=== PATIENT | female | born 1995 | race Caucasian/White ===

== ENCOUNTER 2024-10-29 08:46 | Emergency (ER) | payer OTHER ==
[~2024-10-29] VITALS: Ht 172.7 cm; Wt 125.0 kg
[2024-10-29 08:53] VITALS: TEMP 97.6
--- NOTE | 2024-10-29 08:57 | Physician Documentation ---
History of Present Illness ~ Chief Complaint: Hypertension Stated Complaint: HIGH BLOOD PRESSURE Time Seen by MD: 09:56 HPI THIS 29-YEAR-OLD FEMALE WITH A HISTORY OF ANXIETY AND DEPRESSION PRESENTS WITH A COMPLAINT OF NAUSEA AND VOMITING AND DRY HEAVING OVER THE LAST 2-3 DAYS. SHE ALSO REPORTS HAVING ELEVATED BLOOD PRESSURE. REPORTS INCREASED STRESS LEVELS AT HER NEW JOB. ALSO REPORTS OF MIDSTERNAL CHEST PAIN. REPORTS FEELING WOOZY" The patient tells me that she recently started multiple new medications including an antidepressant and propranolol for high blood pressure. She states that she has been under lot of stress recently. She reports that she has been having multiple symptoms including fatigue, chest tightness when she takes a deep breath, nausea, and general malaise. She had been checking her blood pressure multiple times today and noticed that it was very high, with systolics up to 110. She thought that was bad so she came to the ER. No fevers, chills or other infectious type symptoms. Day of Onset: Oct 29, 2024 Medication Reconciliation Allergies: Coded Allergies: No Known Allergies (Unverified , 10/29/24) Review of Systems Constitutional: Denies: fever Cardiovascular: Reports: chest pain Gastrointestinal: Reports: nausea Physical Exam Vital Signs: Temperature: 97.6, Source: Temporal, Heart Rate: 61, Respiratory Rate: 18, BP: 171/120, Pulse Oximetry: 99, Weight: 124.950 Oxygen Flow Rate: 0 Physical Exam General: This is a tired and mildly anxious appearing young woman, partner at bedside HEENT: Atraumatic, oropharynx appears dry with cracked lips Heart: Regular rate and rhythm, normal-appearing peripheral perfusion Chest: No reproducible tenderness on palpation of the anterior chest wall Lungs: Clear breath sounds bilateral, normal work of breathing, normal oxygen saturation on room air Abdomen: Soft, nondistended, nontender all quadrants Extremities: Warm and well-perfused Neuro: Alert and oriented, no focal deficits Psychiatric: Flattened affect, appears tired, lying with their eyes closed, appears mildly anxious Progress Results/Orders Results/Orders Vital Signs 10/29/24 10/29/24 10/29/24 10/29/24 08:53 10:17 12:40 13:04 Temp 97.6 Pulse 61 51 51 Resp 18 15 14 15 B/P (MAP) 171/120 163/103 (123) 163/103 Pulse Ox 99 100 100 O2 Flow Rate 0 Laboratory Tests Test 10/29/24 09:05 10/29/24 09:55 10/29/24 11:16 CBC Comment Chemistry Comments White Blood Count 8.1 Red Blood Count 5.15 Hemoglobin 15.1 Hematocrit 44.7 Mean Corpuscular Volume 86.7 Mean Corpuscular Hemoglobin 29.4 Mean Corpuscular Hemoglobin Concent 33.9 Red Cell Distribution Width 13.6 Platelet Count 261 Mean Platelet Volume 8.5 Neutrophils (%) (Auto) 61.7 Lymphocytes (%) (Auto) 27.3 Monocytes (%) (Auto) 7.7 Eosinophils (%) (Auto) 2.8 Basophils (%) (Auto) 0.5 Neutrophils # (Auto) 5.0 Lymphocytes # (Auto) 2.2 Monocytes # (Auto) 0.6 Eosinophils # (Auto) 0.2 Basophils # (Auto) 0.0 Sodium Level 142 Potassium Level 3.8 Chloride Level 106 Carbon Dioxide Level 27.4 Anion Gap 9 Blood Urea Nitrogen 6 L Creatinine 0.90 Estimated GFR/1.73 m2 75 BUN/Creatinine Ratio 6.7 L Glucose Level 131 H Calcium Level 8.9 Total Bilirubin 0.6 Aspartate Amino Transf (AST/SGOT) 40 H Alanine Aminotransferase (ALT/SGPT) 72 Alkaline Phosphatase 82 Troponin I High Sensitivity 4 5 Pro-B-Type Natriuretic Peptide 105 Total Protein 7.6 Albumin 3.8 Globulin 3.8 Albumin/Globulin Ratio 1.0 L Troponin I High Sens Percent Delta 25 Troponin I Hi Sens Absolute Change 1 Medical Decision Making Differential Dx:Considerations: Include HTN, essential, Include HTN, accelerated, Include HTN, malignant Additional Information Anxiety, medication reaction, dehydration, viral syndrome Departure Time of Disposition: 12:32 Disposition: 01 HOME / SELF CARE / HOMELESS Impression: Primary Impression: Hypertension Additional Impression: Stress Condition: Stable Discharge Instructions: Hypertension, Adult Referrals: NO PRIMARY CARE PROVIDER (PCP) Education Educated: Patient Educated regarding: diagnosis Signature Scribe Signature: f Attestation: Scribed for Tobias Dumont MD by Johnathan Pierce NP . 10/29/24 18:21 JOHNATHAN ADAME NP Oct 29, 2024 08:57 TOBIAS DUMONT MD Oct 29, 2024 10:22
--- NOTE | 2024-10-29 09:03 | ELECTROCARDIOGRAPH REPORT ---
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
--- NOTE | 2024-10-29 09:40 | RADIOLOGY REPORT ---
CHEST RADIOGRAPH Indication: CP Technique: Single frontal view of the chest was obtained Comparison: None FINDINGS: Lines and Tubes: None Lungs: No focal consolidation. Pleura: No effusion. No pneumothorax. Cardiomediastinal contours: Unremarkable Bones: No acute osseous abnormality. IMPRESSION: 1. No acute cardiopulmonary disease.
[2024-10-29 10:02] LABS: BASOPHILS % (AUTO) 0.5 % (0-1); EOSINOPHILS # (AUTO) 0.2 X10'3 (0-0.9); EOSINOPHILS % (AUTO) 2.8 % (0-6); HEMATOCRIT 44.7 % (35.0-45.0); HEMOGLOBIN 15.1 g/dl (12.0-16.0); LYMPHOCYTES # (AUTO) 2.2 X10'3 (1.1-4.8); LYMPHOCYTES % (AUTO) 27.3 % (21-51); MEAN CORPUSCULAR HEMOGLOBIN 29.4 PG (27.0-31.0); MEAN CORPUSCULAR HGB CONC 33.9 g/dL (33.0-36.5); MEAN CORPUSCULAR VOLUME 86.7 FL (78-98); MEAN PLATELET VOLUME 8.5 FL (7.4-10.4); MONOCYTES # (AUTO) 0.6 X10'3 (0-0.9); MONOCYTES % (AUTO) 7.7 % (2-12); NEUTROPHILS % (AUTO) 61.7 % (42-75); PLATELET COUNT 261 X10'3 (140-440); RED BLOOD COUNT 5.15 X10'6 (4.20-5.60); RED CELL DISTRIBUTION WIDTH 13.6 % (11.5-14.5); WHITE BLOOD COUNT 8.1 X10'3 (4.5-11.0)
[2024-10-29 10:25] LABS: ALANINE AMINOTRANSFERASE 72 U/L (12-78); ALBUMIN 3.8 G/DL (3.4-5.0); ALKALINE PHOSPHATASE 82 IU/L (46-116); ANION GAP 9 (8-16); ASPARTATE AMINO TRANSFERASE 40 U/L (10-37); BILIRUBIN,TOTAL 0.6 MG/DL (0.1-1.0); BLOOD UREA NITROGEN 6 MG/DL (7-18); BUN/CREATININE RATIO 6.7 (10.0-20.0); CALCIUM 8.9 MG/DL (8.5-10.1); CHLORIDE 106 MMOL/L (99-107); GLUCOSE 131 MG/DL (70-104); POTASSIUM 3.8 MMOL/L (3.5-5.1); SODIUM 142 MMOL/L (135-145); TOTAL CARBON DIOXIDE 27.4 MMOL/L (24-32); TOTAL PROTEIN 7.6 G/DL (6.4-8.2); eCRCL 94 ML/MIN; eGFR 75 ML/MIN
[2024-10-29 11:55] LABS: PRO BRAIN NATRIURETIC PEPTIDE 105 PG/ML (0-125)
[2024-10-29 13:04] VITALS: BP 163/103; PULSE 51; RESP 15; O2SAT 100
== END 2024-10-29 13:07 | disposition home or self-care (01) ==
LOC: ER 08:47
DX: I10 Essential (primary) hypertension (principal); F43.9 Reaction to severe stress, unspecified; R06.02 Shortness of breath
CPT/HCPCS: 36415; 71045; 80053; 83880; 84484; 85025; 93005; 99285